=== PATIENT | female | born 1940 | race Caucasian/White ===

== ENCOUNTER → 2017-01-25 | Outpatient (CLI) | payer OTHER ==
[~2017-01-25] MED LIST: ALEVE220 MG; ZESTORETIC 20-1 EACH
== END ==
LOC: CAT 12:34
DX: N20.0 Calculus of kidney (principal); N28.1 Cyst of kidney, acquired; K57.32 Diverticulitis of large intestine without perforation or abscess without bleeding

== ENCOUNTER → 2017-02-20 | Day surgery (SDC) | payer OTHER ==
[~2017-02-20] VITALS: Ht 162.6 cm; Wt 121.1 kg
[2017-02-20] VITALS (7 sets, daily range): BP systolic 100–135; BP diastolic 37–79
[~2017-02-20] MED LIST changes: -ALEVE220 MG; +ALEVE220 MG PO; +ATORVASTATIN CA40 MG PO; +LISINOPRIL-HCT1 EAC1 PO
--- NOTE | ~2017-02-20 | H ---
[facility] [place] [address] HISTORY AND PHYSICAL Name: DAVID ARENASE JEF Room #: PRE [facility] M.R.#: [id number] Admission: Attend Phys: Hugo Phillips MD Discharge: Date of : 44 Report #: [id number] THIS REPORT FOR: //name// CC: Stephanie Phillips PREOPERATIVE DIAGNOSES: Right lower abdominal pain. A CT scan showing a mass in the right lower quadrant partially calcified. Etiology is indeterminate. HISTORY OF PRESENT ILLNESS: The patient is a 76-year-old who has been complaining of right lower quadrant pain for quite some time. Few weeks ago, she was on seat and the pain intensified. The patient had a CAT scan performed. This showed a mass in the right lower quadrant. This is adjacent to the small intestine. Does have some central calcifications. There is no bowel obstruction. This mass is unknown in terms of etiology. The patient denies nausea and vomiting. She is eating well, appetite is good. The pain that she has it is feeling like when she is constipated and also crampy component. Her bowels have been working. The patient had a colonoscopy about a year ago, she had some polyps. No blood, she denies any blood in her stools. When she was young, where she had a diagnosis of colitis not specific, that has resolved. The pain is not related to movement. When she lies down on her right-side it actually feels better. The patient denies any dysuria, but does have increased frequency. PAST SURGICAL HISTORY: The patient has had a total abdominal hysterectomy for fibroids by ____ in 1996. This does not appear to be GRADE TAMPER related on CAT scan. The patient is recommended to have this mass removed. PAST MEDICAL HISTORY: She has a history of hypertension and elevated cholesterol. History of bunion. Hyperlipidemia. Obesity. Polyosteoarthritis. Bilateral tibial tendonitis, rosacea, vitamin D deficiency. MEDICATIONS: Aleve, atorvastatin 40 mg once a day, lisinopril/HCTZ 20/12.5 twice a day, vitamin D3, aspirin 81 mg. ALLERGIES: She is allergic to DOXYCYCLINE. SURGICAL HISTORY: The patient has had gallbladder removed 1980, hysterectomy in 1996 and knee replacement in August and September 2005. FAMILY HISTORY: There is stroke, mother of stroke. Father of heart disease and lung cancer. Brother that had heart bypass surgery. SOCIAL HISTORY: She is retired. Does not smoke, occasionally drinks. REVIEW OF SYSTEMS: She has some back pain. No chest pain, shortness of breath, [facility] [address] [place] [address] HISTORY AND PHYSICAL Name: NOHEMY ARENAS JEF Room #: [facility] M.R.#: [id number] Admission: Attend Phys: Hugo Phillips MD Discharge: Date of : 44 Report #: [id number] palpitation. PHYSICAL EXAMINATION: GENERAL: She is an elderly female in no acute distress. She is moderately obese. HEENT: Pupils react to light. Extraocular muscles are intact. Oropharynx clear. NECK: Soft and supple, no masses. LUNGS: Clear to auscultation. HEART: Regular rate and rhythm. No murmur or gallop. ABDOMEN: Soft and nondistended and mild tenderness in right lower quadrant. No mass, guarding, rigidity, rebound. EXTREMITIES: No cyanosis, clubbing or edema. IMPRESSION AND PLAN: The patient has right lower quadrant pain, which seemed to be from the lesion that is seen on CAT scan. I am not quite sure what this mass is. Because of symptomatic nature, she is recommending that this be removed. May need to resect the small bowel with that. I do not think she will need a colostomy. This was discussed in detail. The patient wishes to proceed, understands risk of bleeding, infection and anastomotic issues. This lesion is not near her colon and does not seem to be GRADE TAMPER related either. We will evaluate this laparoscopically, we will see if it can be removed laparoscopically. By: [id number] Hugo Phillips MD /nt
--- NOTE | ~2017-02-20 | S ---
[facility] [address] [place] [address] SURGICAL PATH RPT PROCEDURE Name: NOHEMY VARGAS JEF Room #: 402-P [facility] M.R.#: [id number] Admission: 02/20/17 Date of : 44 Discharge: Report #: [id number] Path Case #: [id number] PATHOLOGY REPORT COLLECTION DATE: 02/20/2017 RECEIVED DATE: 02/20/2017 SUBMITTING PHYS: Dr. Hugo Phillips OTHER PHYS: Dr Stephanie Mckinnon SPECIMEN(S) RECEIVED: A.Ileum mass * * * * * * * * * * * * FINAL DIAGNOSIS: A. 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 - Margins of resection free of tumor. SYNOPTIC CANCER STAGING REPORT CLINICAL Preresection Treatment: No therapy SPECIMEN Procedure: Resection Specify Type (e.g., partial gastrectomy): small bowel resection TUMOR Primary Tumor Site: Small Intestine Ileum (excludes ileocecal valve) GIST Subtype: Spindle cell Histologic Grade: G1: Low grade; mitotic rate <= 5 / 50 HPF Tumor Size: Greatest dimension (cm): 3.6 Additional Dimension (cm): 3.3 Additional Dimension (cm): 3.0 Tumor Focality: Unifocal Tumor Extent Site(s) of Direct Extent of Tumor: Small Intestine Ileum (excludes ileocecal valve) Accessory Tumor Findings Mitotic Rate: Specify mitotic rate per 5 mm2: 1 Necrosis: Not identified Risk Assessment: Low risk MARGINS Margins: Negative for GIST Distance of Tumor from Closest Margin: Specify (cm): 2.4 [facility] [address] [place] [address] SURGICAL PATH RPT PROCEDURE Name: NOHEMY AVRGAS JEF Room #: 402-P [facility] M..#: [id number] Admission: 02/20/17 Date of : 44 Discharge: Report #: [id number] Path Case #: [id number] STAGE (PTNM) Primary Tumor (pT): pT2: Tumor more than 2 cm but not more than 5 cm Regional Lymph Nodes (pN): Not applicable: No lymph nodes present in the resection Distant Metastasis (pM): Not applicable SPECIAL STUDIES Immunohistochemical Studies: KIT (CD117) Positive Other Specify Methods: immunohistochemistry Specify Results: Other: CD34 COMMENT: Immunohistochemical stains are performed on block A2. CD117: weak reactivity; CD34: reactive; SMA: reactive; Desmin: patchy reactivity. [place]: Dr. Akiko Marie. (IUV; 02/22/17) PATHOLOGIST: Vera Donato M.D. REPORT ELECTRONICALLY SIGNED BY: Vera Donato M.D. DATE/TIME: 02/22/2017 16:20 * * * * * * * * * * * * GROSS PATHOLOGY: The specimen is received in formalin labeled "Nohemy Vargas, krissy mass". Received is an unoriented segment of bowel measuring 6.3 cm in length by 2.4 cm in diameter. Both margins are stapled closed. The serosal surface is pink-mullen in appearance. The attached mesenteric fat measures 1.6 cm in thickness. Extending out from the serosa is a well-circumscribed firm pink-mullen nodule measuring 3.6 x 3.3 x 3.0 cm. The serosal surface is inked black. The specimen is opened along the antimesenteric line to reveal a light mullen mucosa with normal architectural folds. There is a white-mullen, firm nodule is located 2.4 cm from one margin and 2.5 cm from the opposite margin. Sectioning through the nodule reveals gross extension through the muscularis externa extending out to the inked serosal surface. A moderate amount of calcifications are present. No additional nodules or lesions are noted grossly. The specimen is submitted representatively as follows: A1 both margins A2-A5 full-thickness auto service representative sections of mass, [place] [address] SURGICAL PATH RPT PROCEDURE Name: NOHEMY VARGAS JEF Room #: 402-P [facility] M.RCodie#: [id number] Admission: 02/20/17 Date of : 44 Discharge: Report #: [id number] Path Case #: [id number] decalcification A6 uninvolved mucosa. (CAA; 02/21/2017) INTRAOPERATIVE CONSULTATION (Vera Donato M.D.) Small bowel, ileum mass, resection: - Firm nodule with calcifications, margins widely free. Gross findings were discussed with Dr. Hugo Phillips in OR2 at [facility]. (IUV:csd; d/t: 02/21/2017) Testing performed by [facility] at [facility] [address] [place] [address] CLINICAL HISTORY: Abdominal mass INITIAL CPT CODE(S): A; 26410, 71539, 85268, 08632, 66355, 61149, 20873 Professional services performed by [facility] at [facility] [address], [place] [address] Technical services performed by [facility] at [address] [place] [address], [address], [place] [address]. [facility] [address] [place] [address] PHONE: [phone] DIRECTOR: Scar Snider M.D. * * * END OF REPORT * * *
--- NOTE | ~2017-02-20 | O ---
[facility] [place] [address] [place] [address] OPERATIVE REPORT Name: NOHEMY ARENAS JEF Room #: 402-P [facility]..#: [id number] Admission: 02/20/17 Attend Phys: Hugo Phillips MD Discharge: Date of : 44 Report #: [id number] THIS REPORT FOR: //name// CC: Stephanie Phillips DATE OF SERVICE: 02/20/2017 PREOPERATIVE DIAGNOSIS: Right lower quadrant mass. POSTOPERATIVE DIAGNOSIS: Right lower quadrant mass related to the small bowel. PROCEDURES PERFORMED: 1. Diagnostic laparoscopy. 2. Minilaparotomy with small-bowel resection. SURGEON: Hugo Phillips MD ANESTHESIA: General anesthesia. COMPLICATIONS: None. ESTIMATED BLOOD LOSS: 10 mL. PROCEDURE NOTE: With the patient under general anesthesia, a Paris catheter was placed. IV antibiotic was administered. Abdomen was prepped and draped in sterile fashion. A 0.25% Marcaine was used to anesthetize the skin. An 11-mm trocar was placed in a cutdown manner about 2 inches above the umbilicus. Fascia was identified, grasped with hemostat. Fascia was pulled anteriorly , fascia was then opened between the clamps. An 0 Vicryl suture was placed on the fascia for retraction. Veress needle was then placed through the peritoneum. Abdominal cavity was insufflated with CO2. After creating pneumoperitoneum pressure of 15, 11 mm trocar was placed under visualization into the pneumoperitoneum. No harm to underlying tissue. A 5-mm trocar was placed in the right lateral abdomen. With blunt-tipped grasper, the small-bowel was manipulated in the right lower quadrant and the mass was identified. This mass was part of the ileum. It was along the mesenteric aspect of the small-bowel. It cannot be from the small-bowel. I am not quite sure what this lesion is. It is still fairly firm, kind of had a lobulated look. Small-bowel resection was then felt to be necessary to remove this. The bowel was evaluated and noted to be fairly mobile. Even though the patient has a fairly thick abdominal wall, felt that minilaparotomy should be able to get this through. A right lower quadrant incision was made adjacent to the midline because the [address] [address] OPERATIVE REPORT Name: NOHEMY ARENAS [facility] Room #: 402-P [facility]#: [id number] Admission: 02/20/17 Attend Phys: Hugo Phillips MD Discharge: Date of : 42 Report #: [id number] bowel seemed to be able to move here without difficulty. The incision was about 3-4 inches. The subcu fat was about 3 inches deep. The anterior fascia was identified and incised. The part of the rectus muscle was also divided. The posterior transversalis fascia and the peritoneum was opened. The small bowel that was underneath this was not the involved part. I had to put that bowel back in and Danyelle Aurora was placed on the peritoneum. Abdominal cavity was then reinsufflated with CO2. At this time, a grasper was placed in the mesenteric fat adjacent to the mass and then the incision was opened and then I could feel where the grasper was located and the bowel was then visualized. The bowel was then grasped with a Jameson and pulled up into the incision. The bowel is fairly loose and was able to come up through the incision and subcu to the surface. It was about 3-4 cm mass adjacent to the mesenteric side of the bowel. It was a bit more visible on one side of the leaflet than the other. this attached to the bowel. The bowel otherwise looked normal. Small soft lymph nodes were found in the deep part of the mesentery. No suspicious adenopathy. A segmental resection was performed of the bowel, about a 2-3 cm on either side of the mass. The mesentery part of the bowel was divided with a hemostat and OSCAR was passed through this opening and the OSCAR was used to divide the proximal and then the distal bowel. Mesentery was then scored and then divided with clamps. The mesentery was then tied with 2-0 Vicryl tie. The pathologist was called to the room. The pathologist thought this could be a leiomyoma. No definitive diagnosis was reached. Specimen will be processed for permanent sectioning. The bowel was then brought together. The corner of the previous staple line was trimmed off. OSCAR was then put down on each limb. The OSCAR was brought together creating a [id number] function with end-to-end anastomosis. A stitch was placed on the bowel with 3-0 Vicryl to keep it together. The OSCAR was then deployed. There was no bleeding in the staple. The enterotomy was then brought together at a staggered manner with Allis. TA 60 was then placed underneath the Allis clamp closing the enterotomy, across the anastomosis reinforced with 3-0 Vicryl. Mesentery was also brought together with 3-0 Vicryl. No bleeding was identified. The bowel was returned to the abdominal cavity. The transversalis fascia and peritoneum was identified and this was closed with 0 PDS in a running fashion. The anterior sheath was closed with 0 Prolene in a running fashion. Skin was irrigated. A laparoscope was then placed. The anastomosis was detected. There was no bleeding identified. The bowel is pink and viable. No bleeding was identified. CO2 was then evacuated. Trocars were removed. The fascial defect of the cutdown site was closed with 0 PDS [id number] times 2. Skin at the laparoscopic trocar site was closed with 5-0 PDS in subcuticular fashion. The minilaparotomy incision, 4-0 PDS was used to close the incision, this was performed in a running subcuticular fashion. Steri-Strip, 4 x 4s, OpSite used for dressing on the [address] [address] OPERATIVE REPORT Name: NOHEMY ARENAS [facility] Room #: 402-P [facility]..#: [id number] Admission: 02/20/17 Attend Phys: Hugo Phillips MD Discharge: Date of : 44 Report #: [id number] minilaparotomy incision and Steri-Strip, Band-Aids placed on the laparoscopic trocar area. The patient tolerated the procedure well. By: [id number] Hugo Phillips MD /nt
[2017-02-20 07:49] LABS: HEMATOCRIT 42.8 % (37.0-47.0); HEMOGLOBIN 14.4 gm/dL (12.0-15.0)
[2017-02-20 08:00] LABS: CALCIUM 8.9 mg/dL (8.5-10.1); CREATININE 0.8 mg/dL (0.6-1.0); POTASSIUM 3.8 mmol/L (3.5-5.1)
[2017-02-21 02:58] VITALS: BP 159/48
[2017-02-21 05:44] LABS: HEMATOCRIT 38.7 % (37.0-47.0); HEMOGLOBIN 12.7 gm/dL (12.0-15.0); MCH 27.7 pg (26.0-34.0); MCHC 32.8 g/dL (28.0-37.0); MCV 84.5 fL (80.0-100.0); RBC 4.58 mil/uL (4.20-5.00); RDW 15.1 % (10.5-14.5); WBC 11.6 thou/uL (4.0-11.0)
[2017-02-21 06:01] LABS: CALCIUM 8.2 mg/dL (8.5-10.1); CREATININE 1.1 mg/dL (0.6-1.0); POTASSIUM 3.7 mmol/L (3.5-5.1)
[2017-02-21 06:59] VITALS: BP 121/47
[2017-02-21 15:32] VITALS: BP 118/48
[2017-02-21 20:27] VITALS: BP 149/63
[2017-02-22 00:31] VITALS: BP 135/53
[2017-02-22 04:57] VITALS: BP 108/50
[2017-02-22 08:02] VITALS: BP 119/47
[2017-02-22 15:31] VITALS: BP 146/67
[2017-02-22 19:05] VITALS: BP 135/64
[2017-02-23 02:40] VITALS: BP 119/64
[2017-02-23 09:17] VITALS: BP 137/62
[2017-02-23 16:00] VITALS: BP 155/62
[2017-02-23 19:17] VITALS: BP 154/70
== END | disposition home or self-care (01) ==
LOC: TBA 05:27 → OR 05:27 → 4N 05:27 → OR 10:41 → 4N 13:25
PROVIDERS: Surgery
DX: C49.A3 Gastrointestinal stromal tumor of small intestine (principal); I10 Essential (primary) hypertension; E78.00 Pure hypercholesterolemia, unspecified; E66.09 Other obesity due to excess calories; E78.5 Hyperlipidemia, unspecified; Z90.49 Acquired absence of other specified parts of digestive tract; Z90.710 Acquired absence of both cervix and uterus; Z96.653 Presence of artificial knee joint, bilateral; Z98.890 Other specified postprocedural states

== ENCOUNTER → 2020-01-28 | Outpatient (CLI) | payer OTHER ==
[~2020-01-28] MED LIST changes: +KEFLEX500 M1 PO; +NORCO 5-325 TA1 EACH PO; +NYAMYC15 GM TOP; +TRAMADOL 50 MG50 MG PO
== END ==
LOC: SJCVCIMAG 12:56 → SJCVC 12:56
PROVIDERS: ATTEND Internal Medicine Cardiovascular Disease
DX: I65.23 Occlusion and stenosis of bilateral carotid arteries (principal); I44.1 Atrioventricular block, second degree; I49.3 Ventricular premature depolarization; I45.10 Unspecified right bundle-branch block; I27.20 Pulmonary hypertension, unspecified; I08.8 Other rheumatic multiple valve diseases; I11.9 Hypertensive heart disease without heart failure; R94.31 Abnormal electrocardiogram [ECG] [EKG]; E78.00 Pure hypercholesterolemia, unspecified; H53.9 Unspecified visual disturbance; I25.10 Atherosclerotic heart disease of native coronary artery without angina pectoris; E66.9 Obesity, unspecified; Z90.49 Acquired absence of other specified parts of digestive tract; Z90.710 Acquired absence of both cervix and uterus; Z96.653 Presence of artificial knee joint, bilateral; Z82.49 Family history of ischemic heart disease and other diseases of the circulatory system

== ENCOUNTER → 2020-03-03 | Outpatient (CLI) | payer OTHER | LOC: SJCVC 13:09 | DX: R94.31 Abnormal electrocardiogram [ECG] [EKG] (principal); I45.10 Unspecified right bundle-branch block; I49.9 Cardiac arrhythmia, unspecified; I48.91 Unspecified atrial fibrillation; I10 Essential (primary) hypertension; E78.00 Pure hypercholesterolemia, unspecified; G45.9 Transient cerebral ischemic attack, unspecified; D68.59 Other primary thrombophilia; I25.10 Atherosclerotic heart disease of native coronary artery without angina pectoris; E66.9 Obesity, unspecified; Z90.49 Acquired absence of other specified parts of digestive tract; Z90.710 Acquired absence of both cervix and uterus; Z96.653 Presence of artificial knee joint, bilateral; Z79.899 Other long term (current) drug therapy ==

== ENCOUNTER → 2020-05-13 | Outpatient (CLI) | payer OTHER | LOC: SJCVC 15:14 | PROVIDERS: ATTEND Internal Medicine Cardiovascular Disease | DX: R94.31 Abnormal electrocardiogram [ECG] [EKG] (principal); R53.83 Other fatigue; I48.91 Unspecified atrial fibrillation; I10 Essential (primary) hypertension; D68.59 Other primary thrombophilia; E78.00 Pure hypercholesterolemia, unspecified; I87.2 Venous insufficiency (chronic) (peripheral); E66.9 Obesity, unspecified; Z82.49 Family history of ischemic heart disease and other diseases of the circulatory system; Z79.84 Long term (current) use of oral hypoglycemic drugs; Z79.82 Long term (current) use of aspirin; Z86.73 Personal history of transient ischemic attack (TIA), and cerebral infarction without residual deficits; Z79.899 Other long term (current) drug therapy ==

== ENCOUNTER → 2020-05-17 | Outpatient (CLI) | payer OTHER | LOC: SJCVCIMAG 07:31 | PROVIDERS: ATTEND Internal Medicine Cardiovascular Disease | DX: I48.91 Unspecified atrial fibrillation (principal); R06.09 Other forms of dyspnea; R53.83 Other fatigue; E78.5 Hyperlipidemia, unspecified; I10 Essential (primary) hypertension; Z79.82 Long term (current) use of aspirin; Z79.899 Other long term (current) drug therapy ==

== ENCOUNTER → 2020-11-09 | Outpatient (CLI) | payer OTHER | LOC: SJCVC 13:55 | PROVIDERS: ATTEND Internal Medicine Cardiovascular Disease | DX: I44.4 Left anterior fascicular block (principal); R94.31 Abnormal electrocardiogram [ECG] [EKG]; I48.0 Paroxysmal atrial fibrillation; I11.9 Hypertensive heart disease without heart failure; E78.00 Pure hypercholesterolemia, unspecified; I87.2 Venous insufficiency (chronic) (peripheral); D68.59 Other primary thrombophilia; I35.0 Nonrheumatic aortic (valve) stenosis; I65.23 Occlusion and stenosis of bilateral carotid arteries; Z91.048 Other nonmedicinal substance allergy status; Z72.89 Other problems related to lifestyle; Z96.652 Presence of left artificial knee joint; Z96.651 Presence of right artificial knee joint; Z90.710 Acquired absence of both cervix and uterus ==

== ENCOUNTER 2021-03-22 16:42 | Inpatient (IN) | payer OTHER ==
[~2021-03-22] VITALS: Ht 162.6 cm; Wt 126.7 kg
[~2021-03-22 16:42] MED LIST changes: -CHILDREN'S ASPI81 M1 PO; -FAMOTIDINE40 MG PO; -METFORMIN HCL500 M3 PO; -NORVASC 2.5 MG2.5 M1 PO; -PROTONIX40 M2 PO; -TOPROL XL25 MG PO; -XARELTO20 MG PO
[2021-03-22 17:00] VITALS: BP 125/61
[2021-03-22] MEDS ORDERED: NORVASC 2.5 MG2.5 M1 PO ×2 (17:39)
[2021-03-22] MEDS ORDERED: METFORMIN HCL500 M3 PO ×2 (17:40)
[2021-03-22] MEDS ORDERED: CHILDREN'S ASPI81 M1 PO ×2 (17:41)
[2021-03-22] MEDS ORDERED: FAMOTIDINE40 MG PO ×2 (17:41)
[2021-03-22] MEDS ORDERED: XARELTO20 MG PO ×2 (17:42)
[2021-03-22 17:57] LABS: HEMATOCRIT 28.6 % (37.0-47.0); HEMOGLOBIN 9.5 gm/dL (12.0-15.0); MCH 28.9 pg (26.0-34.0); MCHC 33.3 g/dL (28.0-37.0); MCV 86.8 fL (80.0-100.0); RBC 3.3 mil/uL (4.20-5.00); RDW 14.9 % (10.5-14.5); WBC 12.2 thou/uL (4.0-11.0)
[2021-03-22 18:14] LABS: ALBUMIN 3.2 g/dL (3.4-5.0); POTASSIUM 3.6 mmol/L (3.5-5.1); TOTAL BILIRUBIN 0.3 mg/dL (0.2-1.0); TOTAL PROTEIN 6.3 g/dL (6.4-8.2)
[2021-03-22 20:52] VITALS: BP 131/54
[2021-03-23 04:45] VITALS: BP 130/46
[2021-03-23 07:30] VITALS: BP 120/39
[2021-03-23 12:30] VITALS: BP 134/52
[2021-03-23 16:18] VITALS: BP 123/55
[2021-03-23 20:15] VITALS: BP 149/54
[2021-03-24 04:45] VITALS: BP 104/49
[2021-03-24 04:58] LABS: HEMATOCRIT 23.2 % (37.0-47.0); HEMOGLOBIN 7.9 gm/dL (12.0-15.0); MCH 29.7 pg (26.0-34.0); MCV 87.5 fL (80.0-100.0); RBC 2.65 mil/uL (4.20-5.00); WBC 8.9 thou/uL (4.0-11.0)
[2021-03-24 08:42] VITALS: BP 132/48
[2021-03-24 11:30] VITALS: BP 114/54
[2021-03-24 12:44] LABS: HEMATOCRIT 25.3 % (37.0-47.0); HEMOGLOBIN 8.3 gm/dL (12.0-15.0); MCHC 32.9 g/dL (28.0-37.0); RBC 2.87 mil/uL (4.20-5.00); RDW 14.9 % (10.5-14.5)
[2021-03-24 15:47] VITALS: BP 127/47
[2021-03-24 20:45] VITALS: BP 132/69
[2021-03-25 00:30] VITALS: BP 116/36
[2021-03-25 04:56] VITALS: BP 142/49
[2021-03-25 04:58] LABS: HEMOGLOBIN 7.7 gm/dL (12.0-15.0); MCH 29.5 pg (26.0-34.0); MCHC 33.4 g/dL (28.0-37.0); MCV 88.3 fL (80.0-100.0); RBC 2.61 mil/uL (4.20-5.00); RDW 15.1 % (10.5-14.5); WBC 8.5 thou/uL (4.0-11.0)
[2021-03-25 07:30] VITALS: BP 143/38
[2021-03-25] MEDS ORDERED: TOPROL XL25 MG PO ×2 (07:41)
[2021-03-25] MEDS ORDERED: PROTONIX40 M2 PO ×2 (07:55)
[2021-03-25 10:53] VITALS: BP 142/49
== END 2021-03-25 11:24 | disposition home or self-care (01) | DRG 378 ==
LOC: OR 16:42 → EDSTATUS 16:43 → 2N 16:43
PROVIDERS: Nurse Practitioner Adult Health; ADMIT Internal Medicine Cardiovascular Disease; ATTEND Internal Medicine Cardiovascular Disease
PROC: 0W3P8ZZ Control Bleeding in Gastrointestinal Tract, Via Natural or Artificial Opening Endoscopic (ICD-10-PCS; principal; 2021-03-23)
DX: K55.21 Angiodysplasia of colon with hemorrhage (principal); D62 Acute posthemorrhagic anemia; Z20.822 Contact with and (suspected) exposure to COVID-19; D64.9 Anemia, unspecified; I48.0 Paroxysmal atrial fibrillation; E78.5 Hyperlipidemia, unspecified; I35.0 Nonrheumatic aortic (valve) stenosis; I65.29 Occlusion and stenosis of unspecified carotid artery; I10 Essential (primary) hypertension; E78.00 Pure hypercholesterolemia, unspecified; Z96.653 Presence of artificial knee joint, bilateral; E11.9 Type 2 diabetes mellitus without complications; K22.70 Barrett's esophagus without dysplasia; K44.9 Diaphragmatic hernia without obstruction or gangrene; Z79.899 Other long term (current) drug therapy; Z86.73 Personal history of transient ischemic attack (TIA), and cerebral infarction without residual deficits; Z85.038 Personal history of other malignant neoplasm of large intestine; Z87.11 Personal history of peptic ulcer disease; Z90.710 Acquired absence of both cervix and uterus; Z90.49 Acquired absence of other specified parts of digestive tract
CPT/HCPCS: 10081; 62110; 62900; 70005

== ENCOUNTER → 2021-03-22 | Outpatient (CLI) | payer OTHER ==
[~2021-03-22] MED LIST changes: +CHILDREN'S ASPI81 M1 PO; +FAMOTIDINE40 MG PO; +METFORMIN HCL500 M3 PO; +NORVASC 2.5 MG2.5 M1 PO; +PROTONIX40 M2 PO; +TOPROL XL25 MG PO; +XARELTO20 MG PO
== END ==
LOC: SJCVC 16:20
PROVIDERS: ATTEND Internal Medicine Cardiovascular Disease
DX: R94.31 Abnormal electrocardiogram [ECG] [EKG] (principal); R00.0 Tachycardia, unspecified; I44.4 Left anterior fascicular block; K92.1 Melena; I10 Essential (primary) hypertension; I87.2 Venous insufficiency (chronic) (peripheral); I48.0 Paroxysmal atrial fibrillation; D68.59 Other primary thrombophilia; I35.0 Nonrheumatic aortic (valve) stenosis; I65.23 Occlusion and stenosis of bilateral carotid arteries; E78.00 Pure hypercholesterolemia, unspecified; R53.1 Weakness; E66.9 Obesity, unspecified; Z79.82 Long term (current) use of aspirin; Z79.84 Long term (current) use of oral hypoglycemic drugs; Z79.899 Other long term (current) drug therapy; Z82.49 Family history of ischemic heart disease and other diseases of the circulatory system

== ENCOUNTER → 2021-03-31 | Outpatient (CLI) | payer OTHER ==
[~2021-03-31] MED LIST changes: +CHILDREN'S ASPI81 M1 PO; +FAMOTIDINE40 MG PO; +METFORMIN HCL500 M3 PO; +NORVASC 2.5 MG2.5 M1 PO; +PROTONIX40 M2 PO; +TOPROL XL25 MG PO; +XARELTO20 MG PO
== END ==
LOC: SJCVC 13:37
PROVIDERS: ATTEND Internal Medicine Cardiovascular Disease
DX: R94.31 Abnormal electrocardiogram [ECG] [EKG] (principal); I48.0 Paroxysmal atrial fibrillation; I87.2 Venous insufficiency (chronic) (peripheral); I10 Essential (primary) hypertension; E78.00 Pure hypercholesterolemia, unspecified; K92.2 Gastrointestinal hemorrhage, unspecified; R53.1 Weakness; K44.9 Diaphragmatic hernia without obstruction or gangrene; I25.10 Atherosclerotic heart disease of native coronary artery without angina pectoris; I35.0 Nonrheumatic aortic (valve) stenosis; I65.23 Occlusion and stenosis of bilateral carotid arteries; M19.90 Unspecified osteoarthritis, unspecified site; E66.9 Obesity, unspecified; Z72.9 Problem related to lifestyle, unspecified; Z79.82 Long term (current) use of aspirin; Z79.899 Other long term (current) drug therapy; Z88.9 Allergy status to unspecified drugs, medicaments and biological substances

== ENCOUNTER → 2021-04-25 | Outpatient (CLI) | payer OTHER | LOC: SJCVC 11:29 | PROVIDERS: ATTEND Internal Medicine Cardiovascular Disease | DX: K27.4 Chronic or unspecified peptic ulcer, site unspecified, with hemorrhage (principal); I10 Essential (primary) hypertension; I73.9 Peripheral vascular disease, unspecified; I48.91 Unspecified atrial fibrillation; M19.90 Unspecified osteoarthritis, unspecified site; E78.00 Pure hypercholesterolemia, unspecified; E66.9 Obesity, unspecified; R06.09 Other forms of dyspnea; R53.83 Other fatigue ==

== ENCOUNTER 2021-04-26 13:43 | Inpatient (IN) | payer OTHER ==
[~2021-04-26] VITALS: Ht 162.6 cm; Wt 131.1 kg
[2021-04-26 13:46] VITALS: BP 162/44
[2021-04-26 14:11] LABS: BASOPHILS 0.5 % (0.0-2.0); EOSINOPHILS 1.9 % (0.0-3.0); HEMATOCRIT 21.6 % (37.0-47.0); HEMOGLOBIN 7.5 gm/dL (12.0-15.0); LYMPHOCYTES 17.2 % (24.0-44.0); MCH 27.8 pg (26.0-34.0); MCHC 34.5 g/dL (28.0-37.0); MCV 80.7 fL (80.0-100.0); MONOCYTES 7.4 % (1.0-8.0); PLATELET COUNT 516 thou/uL (150-400); RBC 2.68 mil/uL (4.20-5.00); RDW 17.3 % (10.5-14.5); WBC 9.6 thou/uL (4.0-11.0)
[2021-04-26 14:18] LABS: ANION GAP 8 mmol/L (7-16); BUN 22 mg/dL (7-18); CALCIUM 9.1 mg/dL (8.5-10.1); CHLORIDE 106 mmol/L (98-107); CO2 28 mmol/L (21-32); CREATININE 1.1 mg/dL (0.6-1.0); GLUCOSE 138 mg/dL (74-106); POTASSIUM 3.6 mmol/L (3.5-5.1); SODIUM 142 mmol/L (136-145)
[2021-04-26 14:28] LABS: ALBUMIN 3.5 g/dL (3.4-5.0); SGOT 11 U/L (15-37); SGPT 17 U/L (14-59); TOTAL BILIRUBIN 0.5 mg/dL (0.2-1.0); TOTAL PROTEIN 6.8 g/dL (6.4-8.2); TROPONIN-I <0.06 ng/mL (<0.06)
[2021-04-26 14:56] VITALS: BP 162/44
--- NOTE | 2021-04-26 15:18 | EKG ---
[address] [address] ELECTROCARDIOGRAM REPORT Name: NOHEMY ARENAS Room #: 170-5 ADM IN M.R.#: [id number] Admission: 04/26/21 Attend Phys: Sourav Maynard MD Discharge: Date of : 42 Report #: [id number] [facility] ED Test Date: 2021-04-26 Test Time: 14:02:58 Pat Name: NOHEMY ARENAS Department: Room: 170 Gender: F Petrophysical Engineer: JCHAIPAULETTE : 1940 Requested By: Virginia Randolph Order Number: [id number] MD: Tristen Cook Measurements Intervals [place] Rate: 72 P: -58 HI: 180 QRS: -44 QRSD: 95 T: 52 QT: 388 QTc: 425 Interpretive Statements Sinus or ectopic atrial rhythm Left axis deviation Abnormal R-wave progression, late transition Compared to ECG 12/05/2013 11:46:55 Ectopic atrial rhythm now present Left-axis deviation now present Sinus rhythm no longer present Atrial premature complex(es) no longer present Intraventricular conduction delay no longer present Poor R-wave progression no longer present Electronically Signed On 04-26-2021 15:18:35 CDT by Tristen Cook [email or web address] <ELECTRONICALLY SIGNED> By: Tristen Cook MD, [facility] 04/26/21 1518 140 140 Tristen Cook MD, [facility] /EPI
--- NOTE | 2021-04-26 15:33 | NUR ---
PT ORIENTED TO ROOM AND UNIT, BED LOW AND LOCKED, SIDE RAILS UPX3, CALL LIGHT IN REACH, TELE APPLIED. WILL CONTINUE TO ASSESS.
[2021-04-26 19:17] VITALS: BP 123/5; BP 123/55
[2021-04-27] VITALS (7 sets, daily range): BP systolic 113–167; BP diastolic 46–75
--- NOTE | 2021-04-27 04:27 | NUR ---
NO SIGNIFICANT EVENTS DURING THE NIGHT. VSS. AFEBRILE. NO S/S BLEEDING NOTED. PT HAS BEEN NPO SINCE MIDNIGHT FOR EGD TODAY. EGD CONSENT SIGNED AND IN THE CHART. PROTONIX GTT INFUSING ORDERED. PT SLEPT MOST OF THE NIGHT. RESPIRATIONS EVEN AND UNLABORED. UP W/ ASSIST TO BTR. FALL PRECAUTIONS IN PLACE. PROGRESSING TOWARD POC GOALS. WILL CONTINUE TO MONITOR.
[2021-04-27 09:17] LABS: HEMATOCRIT 21.8 % (37.0-47.0); HEMOGLOBIN 7.1 gm/dL (12.0-15.0); MCH 26.6 pg (26.0-34.0); MCHC 32.4 g/dL (28.0-37.0); MCV 82.1 fL (80.0-100.0); RBC 2.65 mil/uL (4.20-5.00); WBC 8.5 thou/uL (4.0-11.0)
[2021-04-27 09:30] LABS: CALCIUM 8.7 mg/dL (8.5-10.1); MAGNESIUM 1.9 mg/dL (1.8-2.4); POTASSIUM 3.6 mmol/L (3.5-5.1)
--- NOTE | 2021-04-27 10:33 | NUR ---
CARE ASSUMED THIS AM, PT ALERT AND ORIENTED X4, DENIES ANY PAIN, NAUSEA AND VOMITTING. PT ON ROOM AIR, NO SIGNS OF DISTRESS. PT ON PROTONIX IV 25MG RUNNING. UP TO BATHROOM X1. FALL PRECAUTIONS IN PLACE, DENIES ANY NEEDS AT MOMENT. PT BROTHER CAROLYN CALLED AND UPDATED ABOUT PT CARE.
--- NOTE | 2021-04-27 13:25 | NUR ---
Assess for high BMI 46.7. Pt NPO at this time pending EGD for GI bleed. Noted with 12# loss since last admission in February. Will await plan and assess when more information is available.
--- NOTE | 2021-04-27 15:37 | NUR ---
INITIAL ASSESSMENT: Received consult. SW reviewed chart and spoke with nursing and attending physician. Pt was admitted from home due to GI Bleed/anemia. Pt to have EGD today. SW met with pt at bedside. Introduced role of SW. Pt is alert/orientated x 4. Pt reports she lives at home alone. Prior to admission, pt was independent with ADLs. Pt states she feels weak right now and is considering post-acute placement. Pt requests to be considered for 5N eval. PT/OT ordered today. SW explained admission criteria and need for insurance authorization. Pt verbalized understanding. SW also discussed SNF options. Pt states she is familiar with [facility] and [facility]. SW left in-network SNF list for pt to review. [facility] is not in-network with pt's insurance. 5N eval completed. Awaiting OT eval at this time. ANGEL is following to assist as needed with discharge planning.
--- NOTE | 2021-04-28 02:39 | NUR ---
ASSESSMENT: PT REMAIN ALERT AND ORIENT TIMES FOUR. UP WITH SBA TO BR. CALLS OUT APPROPRIATELY. PROTONIX GTT CONTINUES PER ASSEMBLER FAUCETS FAISAL CARO, NO ORDER FOUND TO DC. NPO AT [facility] FOR SWALLOW PILL CAM TOMORROW. SR-SB PER MONITOR. DENIES PAIN, SOB AND N/V. BELONGINGS WITHIN REACH. SLOW PROGRESS TOWARDS DC GOALS, WILL CONTINUE TO MONITOR.
[2021-04-28 04:12] VITALS: BP 134/63
[2021-04-28 05:02] LABS: CALCIUM 8.5 mg/dL (8.5-10.1); MAGNESIUM 1.9 mg/dL (1.8-2.4); POTASSIUM 3.5 mmol/L (3.5-5.1)
[2021-04-28 05:16] LABS: HEMOGLOBIN 6.8 gm/dL (12.0-15.0); WBC 9.4 thou/uL (4.0-11.0)
[2021-04-28 05:19] LABS: HEMATOCRIT 20.7 % (37.0-47.0); MCH 26.4 pg (26.0-34.0); MCHC 32.6 g/dL (28.0-37.0); RBC 2.56 mil/uL (4.20-5.00); RDW 16.7 % (10.5-14.5)
[2021-04-28 07:26] VITALS: BP 140/63
--- NOTE | 2021-04-28 09:37 | NUR ---
PT PREMEDICATED WITH REGLAN 10MG AND SIMETHICONE 80MG AT 0730. AFTER OBTAINING WRITTEN CONSENT, VIDEO CAPSULE ENDOSCOPY INITIATED AT 0745. TRANSDUCER ON AND FUNCTIONING. INSTRUCTIONS FOR NPO X2 HRS, THEN CL X 2 HRS, THEN LIGHT MEAL AND RESUMPTION OF MEDS AT 1145 TO BOTH PT AND 3W RN. INSTRUCTED TO PHONE IF TRANSDUCER STOPS BLINKING PRIOR TO 1500. VOICES COMPREHENSION OF ALL ABOVE.
--- NOTE | 2021-04-28 10:40 | NUR ---
Triggered for high BMI, 46.7. Pt reports 12# weight loss since February of this year and states, "I wouldl lizz to get down to the weight I told my doctors I am." She reports that value to be 267#, currently 272#. This goal is attainable. Pt reports going to rehab after this admission and declines any nutrition education r/t weight management at this time, states she will have the RD there talk with her. Low nutrition risk.
[2021-04-28 10:41] VITALS: BP 134/56; BP 141/58
--- NOTE | 2021-04-28 11:01 | NUR ---
15MINS AFTER BLOOD STARTED, NO REACTION NOTED. VITALS SIGNS STABLE, LUNGS CLEAR. WILL CONTINUE TO MONITOR.
[2021-04-28 11:22] VITALS: BP 127/59
--- NOTE | 2021-04-28 15:03 | NUR ---
ANGEL reviewed chart and spoke with nursing and attending physician. Pt had EGD yesterday. Hemoglobin dropped to 6.8. Capsule study ordered. ANGEL met with pt and her sister, Arielle, at bedside to discuss post-acute placement. Awaiting input from Fabián at this time. ANGEL discussed SNF options with pt. In-network SNF list reviewed. Pt requested referral to be sent to [facility]. SW discussed having 1-2 additional options if needed. ANGEL spoke with Alexa at [facility], who states they are only admitting their own community residents into their SNF at this time. SW provided update to pt and sister. Request for referrals to be sent to [facility] and [facility]. SW faxed referrals. ANGEL spoke with Ivon in admissions at [facility] and Delano at [facility]. Facilities to review info. ANGEL is following to assist as needed with discharge planning.
[2021-04-28 15:13] VITALS: BP 134/63
[2021-04-28 19:20] VITALS: BP 140/61
[2021-04-29 04:20] VITALS: BP 124/50
[2021-04-29 05:04] LABS: HEMATOCRIT 22.2 % (37.0-47.0); HEMOGLOBIN 7.2 gm/dL (12.0-15.0); MCH 26.3 pg (26.0-34.0); MCHC 32.4 g/dL (28.0-37.0); RBC 2.74 mil/uL (4.20-5.00); RDW 16.7 % (10.5-14.5); WBC 8.4 thou/uL (4.0-11.0)
--- NOTE | 2021-04-29 07:13 | NUR ---
Pt. stated she slept well last night. No signs of active bleeding. Denies any concern at this time. Making progress towards care plan goals.
[2021-04-29 07:23] VITALS: BP 139/59
[2021-04-29 09:22] LABS: % SATURATION 4 % (20-39); IRON 11 ug/dL (50-170); TIBC 277 ug/dL (250-450)
[2021-04-29 09:38] LABS: FOLIC ACID 17.9 ng/mL (8.6-58.9)
--- NOTE | 2021-04-29 14:15 | NUR ---
ANGEL reviewed chart and spoke with nursing and attending physician. Pt to have CT scan today. Pt is not ready for discharge. ANGEL spoke with Sarah at [facility] to follow up on referral. [facility] SNF is able to accept pt when medically stable. Will need insurance auth from [facility] for SNF placement. No weekend discharge planned. ANGEL to send clinical/therapy updates to [facility] on Sunday for review. ANGEL met with pt and her sister, Arielle, at bedside. Provided update. Both are agreeable with discharge plan. ANGEL is following to assist as needed with discharge planning.
[2021-04-29 15:43] VITALS: BP 136/60
--- NOTE | 2021-04-29 17:51 | NUR ---
assumed care of pt at 0700. pt aox4 no acute distress. reports no improvement after blood transfusion. CT chest performed today. family wanting to discuss m2 capsule study results with GI. no signs of bleeding. wcm.
[2021-04-29 19:05] VITALS: BP 135/60
[2021-04-30 04:17] VITALS: BP 141/58
[2021-04-30 04:43] LABS: HEMATOCRIT 23.3 % (37.0-47.0); HEMOGLOBIN 7.9 gm/dL (12.0-15.0); MCH 27.3 pg (26.0-34.0); MCHC 33.8 g/dL (28.0-37.0); MCV 80.8 fL (80.0-100.0); RBC 2.89 mil/uL (4.20-5.00); RDW 16.9 % (10.5-14.5); WBC 8.9 thou/uL (4.0-11.0)
[2021-04-30 07:24] VITALS: BP 129/62
--- NOTE | 2021-04-30 08:07 | NUR ---
pt. stated she slept fair during the night. Denies any concern. No signs of active bleeding. Making progress towards care plan goals.
--- NOTE | 2021-04-30 12:57 | NUR ---
ANGEL ADVISED BY FOLLOWING MD ON THIS DAY THAT PT IS MEDICALLY STABLE TO TRANSITION BY 05/01. ANGEL CONTACTED [facility] TO START AUTH. ANGEL ADVISED BY PAULINO AT [facility] THAT NEGATIVE RESTORER WILL RETURN WEDNESDAY 05/02. ANGEL WILL ADVISE WEEKDAY CM TO F/U.
--- NOTE | 2021-04-30 14:59 | NUR ---
ANGEL RECEIVED A CALL FROM PT'S BROTHER ALYSSA WHO INQUIRED ABOUT PT'S D/C PLAN. ALYSSA INFORMED THIS SW THAT NURSING TOLD PT THAT SHE WOULD BE RETURNING HOME. ANGEL ADVISED THAT PT PLAN IS TO TRANSITION TO [facility] ONCE INSURANCE HAS APPROVED. ANGEL EDCUATED ALYSSA ON THE REFERRAL PROCESS AND ADVISED THAT WEEKDAY CM HAS DISCUSSED THIS W/ PT AND HER SISTER AMIRA. ANGEL ADVISED THAT THIS SW WILL CHECK IN W/ NURSING AND ADVISE OF PT D/C PLAN. SNF VS HH. ANGEL WILL ADVISE WEEKDAY CM.
[2021-04-30 15:09] VITALS: BP 128/56
--- NOTE | 2021-04-30 15:14 | NUR ---
SW HAS NOT CONFIRMED A HOSPICE COMPANY THAT HAS ACCEPTED. [facility], [facility], [facility], [facility], AND [facility] ARE ASSESSING PT FOR HOME CARE. PT WILL RETURN HOME IN [place], [place] AND NOT MANY COMPANIES SERVICE THIS AREA. ANGEL ADVISED PT'S SON AND DISCUSSED TRANSPORTATION OPTIONS, WHICH TRNASPORT WILL BE SET W/ [facility] ON 05/01 ONCE HOSPICE COMPANY HAS BEEN CONFIRMED. ANGEL ADVISED MEDICAL TEAM
[2021-04-30 16:47] LABS: HEMATOCRIT 24.4 % (37.0-47.0); HEMOGLOBIN 8.1 gm/dL (12.0-15.0)
[2021-04-30 17:00] LABS: ABSOLUTE RETIC COUNT 0.1033 10^6/uL; OBSERVED RETIC COUNT 3.44 % (0.6-2.6)
--- NOTE | 2021-04-30 18:40 | NUR ---
ASSUMED PATIENT CARE AT 0700. A/O X4. UP AD ALLEGRA. HG UP TO 8.1. PROGRESSING TOWARDS POC GOALS.
[2021-04-30 19:24] VITALS: BP 117/62
--- NOTE | 2021-05-01 03:03 | NUR ---
Ambulated around hallway x2 at HS. Mild shortness of breath with exertion. Denies any pain. Slept well during the night. Making some progress towards care plan goals.
[2021-05-01 04:13] VITALS: BP 126/44
--- NOTE | 2021-05-01 05:51 | NUR ---
Pt. verbalized she feels like she have UTI. She C/O burning when urinating and as foul smell ,denies frequency. CHANNEL MACHINE OPERATOR notified , UA C&S ordered. Informed pt. that urine sample needs be collected for test.
[2021-05-01 07:56] VITALS: BP 114/45
[2021-05-01 08:03] LABS: HEMATOCRIT 23.7 % (37.0-47.0); HEMOGLOBIN 7.6 gm/dL (12.0-15.0)
[2021-05-01 09:34] LABS: URINE BILIRUBIN NEGATIVE (Negative); URINE BLOOD 1+ (Negative); URINE CLARITY CLOUDY; URINE COLOR YELLOW; URINE GLUCOSE-RANDOM* NEGATIVE (Negative); URINE KETONES NEGATIVE (Negative); URINE PROTEIN (DIPSTICK) NEGATIVE (Negative); URINE SPECIFIC GRAVITY 1.025 (1.005-1.035); URINE UROBILINOGEN 0.2 E.U./dl (0.2-1.0)
[2021-05-01 09:35] LABS: URINE LEUKOCYTES-REFLEX 2+ (Negative); URINE NITRITE-REFLEX POSITIVE (Negative)
[2021-05-01 09:58] LABS: CASTS None Seen /LPF (None Seen); CRYSTALS None Seen /LPF (None Seen); SQUAMOUS >10 Many /LPF (0-3)
[2021-05-01 09:59] LABS: BACTERIA-REFLEX >30 Many /HPF (None Seen); URINE RBC 1-2 Rare /HPF (NONE SEEN); URINE WBC-REFLEX >25 Many /HPF (0-5)
[2021-05-01 15:40] VITALS: BP 133/57
[2021-05-01 16:24] LABS: URINE BILIRUBIN NEGATIVE (Negative); URINE BLOOD TRACE (Negative); URINE CLARITY CLOUDY; URINE COLOR YELLOW; URINE GLUCOSE-RANDOM* NEGATIVE (Negative); URINE KETONES TRACE (Negative); URINE LEUKOCYTES-REFLEX 1+ (Negative); URINE NITRITE-REFLEX POSITIVE (Negative); URINE PROTEIN (DIPSTICK) NEGATIVE (Negative); URINE UROBILINOGEN 0.2 E.U./dl (0.2-1.0)
[2021-05-01 16:36] LABS: CRYSTALS None Seen /LPF (None Seen)
[2021-05-01 16:38] LABS: SQUAMOUS 0-3 Few /LPF (0-3)
[2021-05-01 16:40] LABS: BACTERIA-REFLEX >30 Many /HPF (None Seen)
[2021-05-01 16:42] LABS: URINE RBC 1-2 Rare /HPF (NONE SEEN)
[2021-05-01 16:43] LABS: CASTS None Seen /LPF (None Seen)
--- NOTE | 2021-05-01 18:31 | NUR ---
no distress noted. progressing towards poc goals.
[2021-05-01 19:49] VITALS: BP 140/60
[2021-05-01 22:06] LABS: IgA 114 mg/dL (64-422); IgG 541 mg/dL (586-1602); IgM 48 mg/dL (26-217)
[2021-05-02 05:01] VITALS: BP 115/39
--- NOTE | 2021-05-02 05:13 | NUR ---
Patient making progress towards outcome goals. Vital signs and rhythm stable. Up adlib without difficulty. No active signs of bleeding. Patient wanting rehab/skilled before going home as she lives by herself. Awaiting insurance authorization.
[2021-05-02 05:23] LABS: BASOPHILS 0.8 % (0.0-2.0); EOSINOPHILS 4.1 % (0.0-3.0); HEMOGLOBIN 7.6 gm/dL (12.0-15.0); LYMPHOCYTES 21.4 % (24.0-44.0); MCH 26.1 pg (26.0-34.0); MCHC 31.6 g/dL (28.0-37.0); MCV 82.6 fL (80.0-100.0); MONOCYTES 9.9 % (1.0-8.0); PLATELET COUNT 466 thou/uL (150-400); POLYS 63.8 % (36.0-66.0); RDW 17.1 % (10.5-14.5); WBC 9.4 thou/uL (4.0-11.0)
[2021-05-02 05:32] LABS: CALCIUM 8.7 mg/dL (8.5-10.1); POTASSIUM 3.5 mmol/L (3.5-5.1)
[2021-05-02 07:56] VITALS: BP 148/59
[2021-05-02 16:36] VITALS: BP 140/61
--- NOTE | 2021-05-02 18:30 | NUR ---
assumed care of pt at 0700. pt aox4 no acute distress. very pleasant. no signs of bleeding. hgb stable. steady gait. ivf started to correct hypernatremia. wcm.
[2021-05-02 19:42] VITALS: BP 140/55
[2021-05-03 03:20] VITALS: BP 117/45
--- NOTE | 2021-05-03 05:29 | NUR ---
PT MAKING PROGRESS TOWARDS GOALS. HBG TREND NOTED. PT DENIES ANY DISCOLORATION TO LAST BOWEL MOVEMENT. INSTRUCTED TO REPORT ANY POSSIBLE BLOODY STOOLS.
[2021-05-03 07:21] VITALS: BP 136/59
[2021-05-03 10:06] LABS: KAPPA/LAMBDA RATIO 1.74 (0.26-1.65); LAMBDA FREE LIGHT CHAINS 8.6 mg/L (5.7-26.3)
[2021-05-03 12:18] LABS: HEMATOCRIT 25.8 % (37.0-47.0); HEMOGLOBIN 8.4 gm/dL (12.0-15.0)
[2021-05-03 12:28] LABS: CALCIUM 8.7 mg/dL (8.5-10.1); POTASSIUM 3.4 mmol/L (3.5-5.1)
[2021-05-03] MEDS ORDERED: PACERONE 200 M200 M1 PO (12:59)
[2021-05-03] MEDS ORDERED: CEFUROXIME250 MG PO (12:59)
[2021-05-03] MEDS ORDERED: LISINOPRIL10 MG PO (12:59)
--- NOTE | 2021-05-03 14:47 | NUR ---
ANGEL reviewed chart and spoke with nursing and attending physician. Pt is progressing towards goals for discharge. Cardiology consulted today. Pt had echo earlier this afternoon. SW had received call from pt's sister regarding HH options if needed. ANGEL faxed updated clinical/therapy info to [facility] this morning. Spoke with Delano in admissions, who submitted for insurance auth this morning. ANGEL met with pt at bedside to provide update and discuss discharge plan. Pt states that she was told that has a bed available and she would like to be considered for 5N. SW explained admission criteria for 5N and that insurance would need to provide auth. SW further explained that insurance would likely not provide auth and then SNF would need to considered or home with HH. Pt states she lives at home alone and does not feel ready to d/c. ANGEL provided pt with in-network list of HH agencies for review. Pt requesting 5N evaluate her. ANGEL spoke with rehabilitation teacher. 5N will come visit with pt this afternoon. Awaiting input from [facility] at this time. ANGEL is following to assist as needed with discharge planning.
[2021-05-03 15:13] VITALS: BP 142/58
[2021-05-03 17:07] LABS: GLOBULIN TOTAL 2.4 g/dL (2.2-3.9); M-SPIKE Not Observed g/dL (Not Observed)
--- NOTE | 2021-05-03 17:36 | 2DMMODE ---
[facility] [place] [address] 2 D/M-MODE ECHOCARDIOGRAM Name: NOHEMY ARENAS [facility] Room #: 355-P ADM IN M.R.#: [id number] Admission: 04/26/21 Attend Phys: Sourav Maynard MD Discharge: Date of : 44 Report #: [id number] THIS REPORT FOR: cc: Stephanie Mckinnon MD, Jennifer S. MD Mancuso,Tavo Joy MD [facility] ~ APPROVED REPORT Study performed: 05/03/2021 13:35:39 EXAM: Comprehensive 2D, Doppler, and color-flow Echocardiogram Patient Location: Bedside Room #: 355 Status: routine BSA: 2.23 HR: 65 bpm BP: 136/59 mmHg Rhythm: NSR Other Information Study Quality: Adequate Indications Aortic Valve Disease Dyspnea 2D Dimensions IVSd: 11.78 (7-11mm) LVOT Diam: 19.83 (18-24mm) LVDd: 42.44 mm PWd: 12.20 (7-11mm) Ascending Ao: 30.15 (22-36mm) LVDs: 25.77 (25-40mm) Left Atrium: 38.54 (27-40mm) Aortic Root: 33.35 mm IVC: 23.00 mm Aortic Valve AoV Peak Ruben.: 2.01 m/s AO Peak Gr.: 16.22 mmHg LVOT Max P.54 mmHg AO Mean Gr.: 9.01 mmHg LVOT Mean P.89 mmHg AO V2 Mean: 1.41 m/s LVOT Max V: 1.37 m/s AO V2 VTI: 44.93 cm LVOT Mean V: 0.90 m/s PERLA (VTI): 2.20 cm2 LVOT V1 VTI: 32.02 cm PERLA Vmax: 2.10 cm2 SV (LVOT): 98.82 mL [facility] [place] [address] 2 D/M-MODE ECHOCARDIOGRAM Name: NOHEMY ARENAS JEF Room #: 355-P [facility] IN .R.#: [id number] Admission: 04/26/21 Attend Phys: Sourav Maynard, Discharge: Date of : 44 Report #: [id number] Mitral Valve E/A Ratio: 1.2 MV Decel. Time: 289.77 ms MV E Max Ruben.: 1.19 m/s MV A Ruben.: 0.98 m/s MV PHT: 84.03 ms IVRT: 69.20 ms Pulmonary Valve PV Peak Ruben.: 1.07 m/s PV Peak Gr.: 4.56 mmHg Pulmonary Vein P Vein S: 0.56 m/s P Vein A: 0.39 m/s P Vein D: 0.40 m/s P Vein A Dur.: 96.9 msec P Vein S/D Ratio: 1.40 Tricuspid Valve TR Peak Ruben.: 2.49 m/s TR Peak Gr.: 24.77 mmHg PA Pressure: 35.00 mmHg Left Ventricle The left ventricle is normal size. There is normal LV segmental wall motion. Mild concentric left ventricular hypertrophy. The left ventricular systolic function is normal. The left ventricular ejection fraction is within the normal range. LVEF is 65%. Grade II - pseudonormal filling dynamics. Right Ventricle The right ventricle is normal size. The right ventricular systolic function is normal. Atria The left atrium size is normal. The right atrium size is normal. Aortic Valve The aortic valve is normal in structure. The Aortic valve is sclerotic. No aortic regurgitation is present. Mild aortic stenosis. Mitral Valve The mitral valve is normal in structure. Trace mitral regurgitation. No evidence of mitral valve stenosis. Tricuspid Valve [facility] [address] [place] [address] 2 D/M-MODE ECHOCARDIOGRAM Name: NOHEMY ARENAS JEF Room #: 355-P [facility] IN [facility]#: [id number] Admission: 04/26/21 Attend Phys: Sourav Maynard, Discharge: Date of : 44 Report #: [id number] The tricuspid valve is normal in structure. There is trace tricuspid regurgitation. eSTIMATED pap 35 mmHg. There is mild pulmonary hypertension. Pulmonic Valve The pulmonary valve is normal in structure. There is no pulmonic valvular regurgitation. Great Vessels The aortic root is normal in size. IVC is dilated and collapses >50% with inspiration. Pericardium There is no pericardial effusion. <Conclusion> The left ventricle is normal size. Mild concentric left ventricular hypertrophy. LVEF is 65%. Grade II - pseudonormal filling dynamics. The right ventricle is normal size. The left atrium size is normal. The aortic valve is normal in structure. The Aortic valve is sclerotic. Mild aortic stenosis. Trace mitral regurgitation. There is trace tricuspid regurgitation. eSTIMATED pap 35 mmHg. There is mild pulmonary hypertension. There is no pulmonic valvular regurgitation. The aortic root is normal in size. There is no pericardial effusion. <ELECTRONICALLY SIGNED> By: Tavo Dietz MD, FACC 05/03/21 1735 [id number] Tavo Dietz MD, FACC /INF
--- NOTE | 2021-05-03 18:09 | NUR ---
PROGRESSING TOWARDS POC GOALS.
[2021-05-03 19:32] VITALS: BP 141/61
[2021-05-04 05:32] VITALS: BP 136/58
--- NOTE | 2021-05-04 05:56 | NUR ---
Pt. stated she slept very well during the night. She verbalized she is not as short of breath anymore after ambulating. Burning upon urination is almost gone. No bleeding noted. Progressing towards discharge goals.
[2021-05-04 07:40] VITALS: BP 123/63
--- NOTE | 2021-05-04 09:34 | NUR ---
ANGEL reviewed chart. ANGEL spoke with Delano in admissions at [facility], who states they are waiting to hear back from pt's insurance regarding SNF auth. 5N consult completed yesterday. Pt is too high level for admission to inpt acute rehab. SW is following to assist as needed with discharge planning.
--- NOTE | 2021-05-04 10:20 | NUR ---
no distress noted. up ad mariela walk in the [address]. progressing towards poc goals.
[2021-05-04 10:37] LABS: HEMATOCRIT 25.7 % (37.0-47.0); HEMOGLOBIN 8.5 gm/dL (12.0-15.0); MCH 27.8 pg (26.0-34.0); MCHC 33.1 g/dL (28.0-37.0); MCV 83.8 fL (80.0-100.0); RBC 3.06 mil/uL (4.20-5.00); RDW 17.5 % (10.5-14.5); WBC 9.1 thou/uL (4.0-11.0)
[2021-05-04 16:19] VITALS: BP 131/56
[2021-05-04 20:25] VITALS: BP 165/62
[2021-05-05 04:30] VITALS: BP 137/70
--- NOTE | 2021-05-05 06:14 | NUR ---
Pt. stated she had another good night sleep. Concern about increasing swelling in her legs this am when she first woke up.
[2021-05-05 07:25] VITALS: BP 132/61
--- NOTE | 2021-05-05 10:29 | NUR ---
Follow up: Pt noted with good intakes at meals and stable weights on this admit. Labs and meds reviewed. GI issues resolving, progressing well per documentation. Pt still declines any nutrition education at this time and prefers to wait until she is at rehab facility so she can focus on the information and use it while doing therapy. Continues low nutrition risk.
[2021-05-05 13:17] VITALS: BP 132/61
--- NOTE | 2021-05-05 13:34 | NUR ---
per dr. lagos pt's insurance denied snf stay. cm notified pt who then indicated she would pay out of pocket for respite. kiah also notified delano at [facility]. per Delano pt has to bring a check at time of arrival. pt agreeable to payment. pt indicated her sister will provide transportation. delano indicated pt is okay to have sister bring pt to snf and is okay with pt bringing medication from pharmacy, with proper labels, etc. kiah faxed dc orders to [phone].
--- NOTE | 2021-05-06 08:28 | P ---
[facility] [place] [address] PROCEDURE REPORT Name: DEEPANOHEMY JEF Room #: 355-P [facility] IN M.R.#: [id number] Admission: 04/26/21 Attend Phys: Sourav Maynard MD Discharge: 05/05/21 Date of : 44 Report #: [id number] THIS REPORT FOR: cc: Stephanie Mckinnon MD, Jennifer S. MD McElhinney,Mika Stearns MD ~ DOC #: [id number] Mika Mendoza MD DATE OF SERVICE: 04/27/2021 PROCEDURE PERFORMED: Upper endoscopy with small bowel enteroscopy and bleeding control. HISTORY OF PRESENT ILLNESS: The patient is a 80-year-old female who was admitted yesterday with increasing shortness of breath and dizziness, was noted to be anemic again. Hemoglobin yesterday on admission was 7.5, today is 7.1. She has a previous history of upper endoscopy by my partner, Dr. 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 She is on aspirin as well as Xarelto on a regular basis. These have been held. Plan is for upper endoscopy. Previous colonoscopy in 2019 was performed in a different facility in which polyps were removed, diverticulosis and hemorrhoids were noted. DESCRIPTION OF PROCEDURE: The risks and benefits of the procedure were explained to the patient, those risks including but not limited to bleeding, perforation and the risk of sedation. She understood these risks and gave informed consent. Sedation was given using propofol per Anesthesia. Next, using an Olympus pediatric colonoscope, the scope was placed in the patient's mouth and advanced under direct vision through the esophagus, stomach, through the duodenum and well into the jejunum. I advanced the scope as far as possible to 140 cm. The scope was then slowly withdrawn. Areas of the jejunum were all normal. In the second portion of the duodenum, the previously placed endoclip was noted. Right next to this was a nonbleeding AVM. I proceeded with treating this with a 7-Spanish bipolar cautery. In this area, there was some bleeding, but then with further cautery, no further bleeding was noted. No other AVMs or abnormalities were noted in the duodenum or the jejunum. The gastric mucosa was normal. On retroflexion, small hiatal hernia was again noted. There was no evidence of blood throughout the exam today. In the distal esophagus, changes consistent with Henry's noted. Otherwise, normal esophagus. The scope was then withdrawn and the procedure terminated. The patient tolerated the procedure well. IMPRESSION: 1. Short segment Henry's esophagus. 2. Small hiatal hernia. [facility] [address] [place] [address] PROCEDURE REPORT Name: NOHEMY ARENAS Room #: 355-P DIS IN M.R.#: [id number] Admission: 04/26/21 Attend Phys: Sourav Maynard MD Discharge: 05/05/21 Date of : 44 Report #: [id number]. Previously placed endoclip noted in the second portion of the duodenum near AVM. This was treated with bipolar cautery today. No bleeding was noted throughout the exam today. No further AVMs or other abnormalities were noted. RECOMMENDATIONS: 1. Observe the patient post-procedure. 2. Continue to monitor hemoglobin closely. 3. Continue to hold anticoagulation therapy. 4. I would recommend proceeding with a capsule endoscopy. 5. 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 Thank you for allowing me to participate in her care. Mika Mendoza MD [facility] <ELECTRONICALLY SIGNED> By: Mika Mendoza MD 05/06/21 0828 [id number] [id number] Mika Mendoza MD /nt
== END 2021-05-05 14:21 | DRG 378 ==
LOC: ER 13:43 → EROBS 15:14 → 3W 15:14
PROVIDERS: Hospitalist; Internal Medicine; Internal Medicine Hematology & Oncology; Nurse Practitioner; Nurse Practitioner Adult Health; Nurse Practitioner Family; Physician Assistant; ADMIT Internal Medicine; ATTEND Internal Medicine
PROC: 0D598ZZ Destruction of Duodenum, Via Natural or Artificial Opening Endoscopic (ICD-10-PCS; principal; 2021-04-27)
PROC: 30233N1 Transfusion of Nonautologous Red Blood Cells into Peripheral Vein, Percutaneous Approach (ICD-10-PCS; 2021-04-28)
DX: K55.21 Angiodysplasia of colon with hemorrhage (principal); N17.9 Acute kidney failure, unspecified; D62 Acute posthemorrhagic anemia; N39.0 Urinary tract infection, site not specified; E87.0 Hyperosmolality and hypernatremia; Z68.42 Body mass index [BMI] 45.0-49.9, adult; I10 Essential (primary) hypertension; E78.00 Pure hypercholesterolemia, unspecified; I48.0 Paroxysmal atrial fibrillation; Z96.653 Presence of artificial knee joint, bilateral; K22.70 Barrett's esophagus without dysplasia; K44.9 Diaphragmatic hernia without obstruction or gangrene; I35.0 Nonrheumatic aortic (valve) stenosis; I65.29 Occlusion and stenosis of unspecified carotid artery; Z60.2 Problems related to living alone; R53.81 Other malaise; E53.8 Deficiency of other specified B group vitamins; E66.01 Morbid (severe) obesity due to excess calories; D47.3 Essential (hemorrhagic) thrombocythemia; E11.51 Type 2 diabetes mellitus with diabetic peripheral angiopathy without gangrene; B96.20 Unspecified Escherichia coli [E. coli] as the cause of diseases classified elsewhere; E87.6 Hypokalemia; Z79.01 Long term (current) use of anticoagulants; Z90.49 Acquired absence of other specified parts of digestive tract; Z87.11 Personal history of peptic ulcer disease
CPT/HCPCS: 10879; 62110; 62900; 70005

== ENCOUNTER → 2021-07-13 | Outpatient (CLI) | payer OTHER ==
[~2021-07-13] MED LIST changes: +CEFUROXIME250 MG PO; +LISINOPRIL10 MG PO; +PACERONE 200 M200 M1 PO
== END ==
LOC: SJCVC 11:10
PROVIDERS: ATTEND Internal Medicine Cardiovascular Disease
DX: R94.31 Abnormal electrocardiogram [ECG] [EKG] (principal); I48.0 Paroxysmal atrial fibrillation; I35.0 Nonrheumatic aortic (valve) stenosis; I77.9 Disorder of arteries and arterioles, unspecified; I10 Essential (primary) hypertension; E78.00 Pure hypercholesterolemia, unspecified; Z87.19 Personal history of other diseases of the digestive system; Z72.89 Other problems related to lifestyle; Z79.899 Other long term (current) drug therapy; Z88.8 Allergy status to other drugs, medicaments and biological substances